=== PATIENT | male | born 1960 ===

== ENCOUNTER 2018-01-15 14:07 | Emergency (ER) | payer MEDICARE ==
[2018-01-15 14:17] VITALS: RESP 18; O2SAT 100
[2018-01-15] MEDS ORDERED: Morphine 4 MG/ML VIAL IVP ONE (15:30)
[2018-01-15] MEDS ORDERED: Sodium Chloride 0.9% 1,000 ML IV STA (15:32)
--- NOTE | 2018-01-15 15:47 | ED PDOC ---
HPI: Abdomen Time Seen by Provider: 01/15/18 15:13 Chief Complaint (Nursing): Abdominal Pain Chief Complaint (Provider): Abdominal Pain History Per: Patient History/Exam Limitations: no limitations Onset/Duration Of Symptoms: Intermittent Episodes (x1 week) Current Symptoms Are (Timing): Still Present Additional Complaint(s): 57 year old male with past SxHx of appendectomy, cholecystectomy, and gastric bypass, arrives to ED with a complaint of left-sided abdominal throbbing pain radiating to back for 1 week intermittently. He reports associated tactile fever , chills, coughing and diarrhea (recently resolved). He denies any vomiting, chest pain, shortness of pain, bloody stools, or history of shingles. Patient states he has been taking Tylenol with minimal relief but did not take any medication since last night. PMD: Dr. Talha Aly Past Medical History Reviewed: Historical Data, Nursing Documentation, Vital Signs Vital Signs: Last Vital Signs Temp 97 F L 01/15/18 14:15 Pulse 71 01/15/18 14:15 Resp 18 01/15/18 14:15 BP 132/92 H 01/15/18 14:15 Pulse Ox 100 01/15/18 19:30 - Medical History PMH: HTN - Surgical History Surgical History: Appendectomy, Cholecystectomy Other surgeries: gastric bypass; back; shoulder - Family History Family History: States: Unknown Family Hx - Social History Current smoker - smoking cessation education provided: No Alcohol: Occasional Drugs: Denies - Home Medications Home Medications: Ambulatory Orders Medication Instructions Recorded traMADol [Ultram] 50 mg PO TID PRN #15 tab 01/15/18 - Allergies Allergies/Adverse Reactions: Allergies Allergy/AdvReac Type Severity Reaction Status Date / Time Penicillins Allergy RASH Verified 01/15/18 14:15 Review of Systems ROS Statement: Except As Marked, All Systems Reviewed And Found Negative Constitutional: Positive for: Fever (tactile), Chills Cardiovascular: Negative for: Chest Pain Respiratory: Positive for: Cough. Negative for: Shortness of Breath Gastrointestinal: Positive for: Abdominal Pain (left-sided). Negative for: Vomiting, Diarrhea (resolved), Melena Musculoskeletal: Positive for: Back Pain (left-sided) Physical Exam - Reviewed Nursing Documentation Reviewed: Yes Vital Signs Reviewed: Yes - Physical Exam Appears: Positive for: Non-toxic, No Acute Distress Head Exam: Positive for: ATRAUMATIC, NORMAL INSPECTION, NORMOCEPHALIC Skin: Positive for: Normal Color. Negative for: Rash Eye Exam: Positive for: Normal appearance ENT: Positive for: Normal ENT Inspection Neck: Positive for: Normal Cardiovascular/Chest: Positive for: Regular Rate, Rhythm. Negative for: Chest Non Tender Respiratory: Positive for: Normal Breath Sounds. Negative for: Decreased Breath Sounds, Wheezing, Respiratory Distress Gastrointestinal/Abdominal: Positive for: Soft, Tenderness (LUQ). Negative for : Guarding, Rebound Back: Positive for: Normal Inspection. Negative for: L CVA Tenderness, R CVA Tenderness Extremity: Positive for: Normal ROM (upper/lower) Neurologic/Psych: Positive for: Alert (x3), Oriented. Negative for: Motor/ Sensory Deficits - Laboratory Results Result Diagrams: 01/15/18 16:11 01/15/18 16:11 - ECG ECG: Positive for: Interpreted By Me, Viewed By Me ECG Rhythm: Positive for: Normal QRS, Normal ST Segment, Sinus Rhythm. Negative for: ST/T Changes Rate: 64 O2 Sat by Pulse Oximetry: 100 (RA) Pulse Ox Interpretation: Normal - Progress Re-evaluation Time: 19:28 Condition: Re-examined, Improved Medical Decision Making Medical Decision Making: Initial Impression: LUQ pain radiating to back Differential Diagnosis: hiatal hernia, acute pancreatitis, muscle spasm, colitis , lumbar radiculopathy, left lobe pneumonia, kidney stones Initial Plan: * Labs * CT ABD/pelvis with IV contrast * EKG * CXR * Morphine 4mg IVP * IV fluids 1545 Chest X-Ray FINDINGS: LUNGS: No active pulmonary disease. PLEURA: No significant pleural effusion identified. No pneumothorax apparent. CARDIOVASCULAR: Normal. OSSEOUS STRUCTURES: No significant abnormalities. VISUALIZED UPPER ABDOMEN: Surgical clips left upper quadrant abdomen. OTHER FINDINGS: None. IMPRESSION: No acute cardiopulmonary disease appreciated. 1731 --CT ABD/pelvis FINDINGS: LOWER THORAX: Distal esophageal thickening similar to that identified previously. LIVER: Unremarkable. No gross lesion or ductal dilatation. GALLBLADDER AND BILE DUCTS: Status post cholecystectomy. No abnormality is seen in the gallbladder fossa. PANCREAS: Unremarkable. No gross lesion or ductal dilatation. SPLEEN: Unremarkable. ADRENALS: Unremarkable. No mass. KIDNEYS AND URETERS: Unremarkable. No hydronephrosis. No solid mass. VASCULATURE: Unremarkable. No aortic aneurysm. BOWEL: Unremarkable. No obstruction. No gross mural thickening. Stable postoperative findings related gastric bypass and gastrojejunostomy. APPENDIX: Findings related prior appendectomy. PERITONEUM: Unremarkable. No free fluid. No free air. LYMPH NODES: Unremarkable. No enlarged lymph nodes. BLADDER: Unremarkable. REPRODUCTIVE: Unremarkable. BONES: No acute fracture. OTHER FINDINGS: None. IMPRESSION: No acute findings related to/accounting for the clinical presentation. Additional benign and/or incidental findings described above. No significant interval change compared to the prior examination(s). Scribe Attestation: Documented by Soheila Bose, acting as a scribe for Bernie Augustin MD. Provider Scribe Attestation: All medical record entries made by the Scribe were at my direction and personally dictated by me. I have reviewed the chart and agree that the record accurately reflects my personal performance of the history, physical exam, medical decision making, and the department course for this patient. I have also personally directed, reviewed, and agree with the discharge instructions and disposition. Disposition - Clinical Impression Clinical Impression: Abdominal pain - Patient ED Disposition Is Patient to be Admitted: No Doctor Will See Patient In The: Office Counseled Patient/Family Regarding: Studies Performed, Diagnosis, Need For Followup - Disposition Referrals: Talha Aly MD [Family Provider] - Disposition: Routine/Home Disposition Time: 19:29 Condition: GOOD Additional Instructions: NANCI CHISHOLM, thank you for letting us take care of you today. Your provider was Bernie Augustin MD and you were treated for ABD PAIN. The emergency medical care you received today was directed at your acute symptoms. If you were prescribed any medication, please fill it and take as directed. It may take several days for your symptoms to resolve. Return to the Emergency Department if your symptoms worsen, do not improve, or if you have any other problems. Please contact your doctor or call one of the physicians/clinics you have been referred to that are listed on the Patient Visit Information form that is included in your discharge packet. Bring any paperwork you were given at discharge with you along with any medications you are taking to your follow up visit. Our treatment cannot replace ongoing medical care by a primary care provider outside of the emergency department. Thank you for allowing the [facility] team to be part of your care today. If you had an X-Ray or CT scan: A Radiologist will review the ED reading if any change in treatment is needed we will contact you. If you had a blood, urine, or wound culture: It will take several days for the results, if any change in treatment is needed we will contact you. If you had an STI test: It will take 48 hours for the results. Please call after 1 week if you have not heard back. Prescriptions: traMADol [Ultram] 50 mg PO TID PRN #15 tab PRN Reason: Pain, Severe (8-10) Instructions: Acute Abdomen (Belly Pain)
--- NOTE | 2018-01-15 15:47 | RAD ---
Date of service: 01/15/2018 HISTORY: LUQ pain cough COMPARISON: No prior. TECHNIQUE: Chest PA and lateral FINDINGS: LUNGS: No active pulmonary disease. PLEURA: No significant pleural effusion identified. No pneumothorax apparent. CARDIOVASCULAR: Normal. OSSEOUS STRUCTURES: No significant abnormalities. VISUALIZED UPPER ABDOMEN: Surgical clips left upper quadrant abdomen. OTHER FINDINGS: None. IMPRESSION: No acute cardiopulmonary disease appreciated.
[2018-01-15] MEDS ORDERED: Morphine 4 MG/ML VIAL ONE (15:48)
[2018-01-15 16:16] LABS: BASO # 0.1 K/uL (0.0-0.2); BASO % 0.8 % (0.0-2.0); EOS # 0.1 K/uL (0.0-0.7); EOS % 1.2 % (0.0-4.0); HEMOGLOBIN 16.2 g/dL (12.0-18.0); LYMPH # 2.2 K/uL (1.0-4.3); LYMPH % 30.9 % (20.0-40.0); MEAN CORPUSCULAR HEMOGLOBIN 30.8 pg (27.0-31.0); MEAN CORPUSCULAR HGB CONC 34.2 g/dL (33.0-37.0); MONO # 0.6 K/uL (0.0-0.8); NEUT # 4.2 K/uL (1.8-7.0); NEUT % 59.1 % (50.0-75.0); NRBC % 0.1 % (0.0-0.0); RBC 5.27 Mil/uL (4.40-5.90); RED CELL DISTRIBUTION WIDTH 14.3 % (11.5-14.5); WHITE BLOOD COUNT 7.1 K/uL (4.8-10.8)
[2018-01-15 16:25] LABS: BLOOD UREA NITROGEN 21 mg/dl (9-20); CALCIUM 9.6 mg/dL (8.4-10.2); GFR NON-AFRICAN AMERICAN > 60; LIPASE 170 U/L (23-300)
[2018-01-15 16:37] LABS: ALB/GLOB RATIO 1.3 (1.0-2.1); ALBUMIN 4.6 g/dL (3.5-5.0); ALT/SGPT 22 U/L (21-72); AST/SGOT 63 U/L (17-59)
[2018-01-15] MEDS ORDERED: Sodium Chloride 0.9% 50 ML IV ONE (16:51)
[2018-01-15] MEDS ORDERED: Iohexol 300 100 ML IJ ONE (16:51)
--- NOTE | 2018-01-15 17:34 | CT ---
Date of service: 01/15/2018 PROCEDURE: CT Abdomen and Pelvis with contrast HISTORY: LUQ pain COMPARISON: 02/21/2013. TECHNIQUE: Contrast dose: 95 cc Omnipaque 300 Radiation dose: Total exam DLP = 789.03 mGy-cm. This CT exam was performed using one or more of the following dose reduction techniques: Automated exposure control, adjustment of the mA and/or kV according to patient size, and/or use of iterative reconstruction technique. FINDINGS: LOWER THORAX: Distal esophageal thickening similar to that identified previously. LIVER: Unremarkable. No gross lesion or ductal dilatation. GALLBLADDER AND BILE DUCTS: Status post cholecystectomy. No abnormality is seen in the gallbladder fossa. PANCREAS: Unremarkable. No gross lesion or ductal dilatation. SPLEEN: Unremarkable. ADRENALS: Unremarkable. No mass. KIDNEYS AND URETERS: Unremarkable. No hydronephrosis. No solid mass. VASCULATURE: Unremarkable. No aortic aneurysm. BOWEL: Unremarkable. No obstruction. No gross mural thickening. Stable postoperative findings related gastric bypass and gastrojejunostomy. APPENDIX: Findings related prior appendectomy. PERITONEUM: Unremarkable. No free fluid. No free air. LYMPH NODES: Unremarkable. No enlarged lymph nodes. BLADDER: Unremarkable. REPRODUCTIVE: Unremarkable. BONES: No acute fracture. OTHER FINDINGS: None. IMPRESSION: No acute findings related to/accounting for the clinical presentation. Additional benign and/or incidental findings described above. No significant interval change compared to the prior examination(s).
[2018-01-15 19:47] VITALS: BP 135/93; PULSE 69; TEMP 98
--- NOTE | 2018-01-16 17:41 | CARD ---
APPROVED REPORT Date of service: 01/15/2018 <Conclusion> Normal sinus rhythm Left axis deviation Abnormal ECG
== END 2018-01-15 19:46 | disposition home or self-care (01) ==
LOC: H.ER 14:07
DX: R10.9 Unspecified abdominal pain (principal); R05 Cough; I10 Essential (primary) hypertension; Z88.0 Allergy status to penicillin; Z98.84 Bariatric surgery status
CPT/HCPCS: 71046; 74177; 80053; 83690; 84484; 85025; 93005; 96374; 99283; J2270; J7030; Q9967